=== PATIENT | female | born 1980 | race Caucasian/White ===

== ENCOUNTER 2024-09-28 09:53 | Emergency (ER) | payer BC, SELFPAY ==
[2024-09-28 10:05] VITALS: BP 119/76
[2024-09-28 10:37] LABS: % Basophils 0.4 % (0-2); % Eosinophils 1.2 % (0-6); % Immature Granulocytes 0.5 % (0-0.5); % Lymphocytes 17.4 % (20.5-51.1); % Monocytes 7.4 % (1.7-9.3); % Neutrophils 73.1 % (42.2-75.2); Absolute Basophils 0.1 10^3/uL (0-0.2); Absolute Eosinophils 0.2 10^3/uL (0-0.7); Absolute Immature Granulocytes 0.1 10^3/uL (0-0.05); Absolute Lymphocytes 2.1 10^3/uL (1.2-3.4); Absolute Monocytes 0.9 10^3/uL (0.1-0.6); Absolute Neutrophils 8.8 10^3/uL (1.4-6.5); Hematocrit 36.5 % (37.0-47.0); Hemoglobin 12.4 g/dL (12.0-16.0); Mean Corpuscular Hgb 30.2 pg (27.0-31.0); Nucleated Red Blood Cells % 0 %; Platelet Count 264 10^3/uL (130-400); Red Cell Dist. Width 12.4 % (11.5-14.5)
[2024-09-28 10:54] LABS: ALT (SGPT) 21 U/L (0-35); AST (SGOT) 23 U/L (14-36); Albumin 4.5 g/dl (3.5-5.0); Alkaline Phosphatase 80 U/L (38-126); Blood Urea Nitrogen 5 mg/dl (7-17); Calcium 9.4 mg/dl (8.4-10.2); Carbon Dioxide 29 mmol/L (22-30); Chloride 98 mmol/L (98-107); Glucose 101 mg/dl (70-99); Potassium 3.3 mmol/L (3.5-5.1); Sodium 138 mmol/L (135-145); Total Bilirubin 0.6 mg/dl (0.2-1.3); Total Protein 6.9 g/dl (6.3-8.2); eGFR > 60.00
[2024-09-28 10:55] LABS: COVID-19 Antigen Negative (Negative)
[2024-09-28] MEDS: DUONEB 3 ML INH (12:11)
[2024-09-28 12:21] LABS: Monotest Negative (Negative)
--- NOTE | 2024-09-28 12:25 | ED.GENMED ---
History of Present Illness
General
Chief Complaint: Cold/Flu/URI Symptoms
Source: patient and spouse ( at bedside)
Exam Limitations: none
Time Seen by Provider: 09/28/24 11:44
Nursing documentation reviewed up to this point in time: agreed with
History of Present Illness
History of Present Illness:
Patient is a 43-year-old female with history asthma presenting to the emergency department with 8 days of upper respiratory symptoms. Patient reports ongoing cough, nasal congestion, left-sided facial pressure. Symptoms initially started 8 days
ago with fever, chills, body aches, congestion. Cough has came on gradually and has persisted. Patient was seen in urgent care 5 days ago and prescribed 4 days of steroids which she has completed. Patient states cough is worse at night and is
causing her significant sleeping difficulty. She also notices thick, yellow mucus from nose. She is concerned that she has a sinus infection.
Patient using albuterol inhaler and nebulizer at home with mild improvement in symptoms.
Patient states sore throat and fevers have largely improved.
Patient's and son were sick with similar symptoms. Patient did not receive the flu vaccine this year.
Review of Systems
Review of Systems
Allergies reviewed?: Yes
All Other Systems: ROS reviewed and negative except as documented in HPI and ROS
Phy Exam
Physical Exam
Physical Exam:
Vitals: Patient's vital signs are stable. Afebrile
General: Patient is well appearing, no acute distress. Nontoxic appearing
Skin: Warm and dry, no rashes or lesions
Head: Normocephalic, atraumatic. Mild tenderness over left maxillary sinus.
Eyes: Sclera nonicteric. EOMs intact. No nystagmus.
Throat: Mild pharyngeal erythema. No tonsillar edema or exudates. Uvula midline. Protecting airway
Neck: Normal ROM, no cervical spine tenderness, no meningismus
Cardiac: Regular rate and rhythm, no murmurs.
Pulm: Normal respiratory effort, no wheezes, rales, rhonchi heard on exam. Frequent cough.
Abdomen: Abdomen soft. No abdominal tenderness.
Extremities: No evidence of cyanosis or edema
Neuro: AAOx3. Grossly intact
Psychiatric: Normal affect.
Course
Orders/Labs/Results
Orders:
Orders
09/28/24 10:17
CBC/With Diff [Complete Blood Count/With Diff] Urgent
COVID-19 Antigen Urgent
Source: Nasal Swab
Comprehensive Metabolic Panel Urgent
Monotest Urgent
Comment: ADD ON
Influenza A+B Rapid Molecular Urgent
NIMO Source: Nasal Swab
Specimen Description:
09/28/24 12:02
Add On- LAB Urgent
Tests Added?: monospot
Ipratropium/Albuterol Sulfate [Duoneb] 3 ml INH R NOW STA
CR Chest - 2 Views Urgent
Comment:
Reason For Exam: cough, URI symptoms x 8 days
09/28/24 13:34
Doxycycline [Vibramycin] 100 mg PO NOW STA
Abnormal Lab Results
09/28/24
10:17
WBC 12.0 H 10^3/uL
(4.8-10.8)
RBC 4.10 L 10^6/uL
(4.20-5.40)
Hct 36.5 L %
(37.0-47.0)
Abs Immat Gran (auto) 0.1 H 10^3/uL
(0-0.05)
Absolute Neuts (auto) 8.8 H 10^3/uL
(1.4-6.5)
Absolute Monos (auto) 0.9 H 10^3/uL
(0.1-0.6)
Lymphocytes % 17.4 L %
(20.5-51.1)
Potassium 3.3 L mmol/L
(3.5-5.1)
BUN 5 L mg/dl
(7-17)
Creatinine 0.5 L mg/dL
(0.6-1.0)
Glucose 101 H mg/dl
(70-99)
09/28/24 10:17
09/28/24 10:17
Vital Signs
Initial and Last Documented VS:
Initial Vital Signs
Temp Pulse Resp BP Pulse Ox
98.2 F 82 16 119/76 99
09/28/24 10:05 09/28/24 10:05 09/28/24 10:05 09/28/24 10:05 09/28/24 10:05
Last Documented Vital Signs
Temp Pulse Resp BP Pulse Ox
98.2 F 85 16 121/78 98
09/28/24 10:05 09/28/24 13:43 09/28/24 13:43 09/28/24 13:43 09/28/24 13:43
MDM/Problems Addressed
Differential Diagnosis Includes:
Not limited to: Viral illness, viral bronchitis, pneumonia, sinusitis, pharyngitis, asthma exacerbation, etc.
MDM/Problems Addressed:
43 year old female with 8 days of upper respiratory symptoms, now with left sided facial pressure. No fevers, chest pain, or shortness of breath. Patient arrives afebrile with stable vital signs. Physical exam as above. Labs and viral testing
initiated in triage. Mild leukocytosis of 12.2 noted. Otherwise no clinically significant abnormalities. Viral swabs negative. Overall impression is likely viral bronchitis with developing sinusitis. Suspect mild leukocytosis secondary to recent
corticosteroid use. Will give duoneb and check xray to rule out pneumonia.
Update: Patient with some improvement after duoneb. Xray shows no evidence of pneumonia. Suspect viral in nature. Given duration of symptoms and new facial pain - will cover with abx for possible developing bacterial sinusitis. Patient has inhalers/
nebulizer solution at home. Will send cough syrup. Close return precautions discussed. Patient will f/u with primary care. Stable for discharge.
Chronic conditions affecting care:
N/A
Acute Exacerbation and/or Progression of Chronic Illness:
N/A
*Radiology
Radiology exam reviewed: preliminary read by ED provider (Chest x-ray reviewed by me-no pneumonia or other acute abnormality) and radiology read reviewed
*Pulse Oximetry
Patient hypoxic: no
*EKG
Interpreted by ED Provider?: NA
*Wildland Fire Fighter Specialist Interpretation
Rate: Wildland [employer] Fighter Specialist- N/A
*Critical Care Note
Total Time (30-74mins, 75-104mins- exclusive of procedures): Not Applicable
ED Attending Note
-
Portions of this chart may have been created with voice recognition software.� Occasional wrong word or��sound alike� substitutions may have occurred due to the inherent limitations of voice recognition software.
Discharge Plan
Departure
Patient Disposition: Home (Routine Discharge)
Date of Disposition: 09/28/24
Time of Disposition: 13:35
Patient with high blood pressure during this ER visit?: No
Condition: Good
Covid-19: Negative COVID-19
Discharge Problem:
Acute bronchitis, Sinusitis, acute
Instructions: Acute Bronchitis, Adult (DC), Sinusitis in adults - ED discharge instructions
Prescriptions:
New
doxycycline hyclate 100 mg capsule
100 mg PO BID Qty: 14 0RF
codeine-guaifenesin 7.5-225 mg/5 mL liquid
7.5 ml PO Q6H PRN (Reason: Cough) Qty: 473 0RF
Referrals:
UNKNOWN - PT DOES,NOT KNOW [Family Provider] -
Activity Restrictions/Additional Instructions:
Return to the emergency department with any high fevers, chest pain, shortness of breath/difficulties breathing, coughing up blood, worsening current symptoms, or any other concerns
-As discussed that your chest x-ray showed no evidence of pneumonia today. It is likely that you have bronchitis and a sinus infection
-A prescription for an antibiotic has been sent to your pharmacy that you can take twice a day for the next week. It is important you complete this antibiotic course. Be diligent with sun protection while you are on this medication.
-As discussed�you should continue to use your albuterol inhaler and nebulizer as needed for cough. You can use cough syrup as needed for persistent cough.
-It is important to stay well-hydrated. Take Tylenol/Motrin as needed for aches/fever.
-Follow-up with your primary care provider for further evaluation/management to ensure that symptoms are improving
Monitor your symptoms closely return to the emergency department any acute worsening/new symptoms or any other concerns
Interventions
Interventions:
*Risk Screen - Suicide Last Done: 09/28/24 10:05
*General Assessment Last Done: 09/28/24 13:14
*Neglect/Abuse Screening Last Done: 09/28/24 10:05
ED- Fall Risk Assessment Last Done: 09/28/24 13:46
*ED COVID-19 Vaccine History Last Done: 09/28/24 13:14
*Nursing Disposition Last Done: 09/28/24 13:46
ED- Pulmonary Assessment Last Done: 09/28/24 13:14
Discharge Date and Time
Discharge Date/Time: 09/28/24 13:47
Print Language: MICRONESIAN
[2024-09-28] MEDS: VIBRAMYCIN 100 MG PO (13:39)
[2024-09-28 13:43] VITALS: BP 121/78
== END 2024-09-28 13:47 | disposition home or self-care (01) ==
LOC: EMR 09:53
PROVIDERS: Emergency Medicine; EMERGENCY PHYSICIAN Emergency Medicine
DX: J20.9 Acute bronchitis, unspecified (principal); J01.90 Acute sinusitis, unspecified; J45.909 Unspecified asthma, uncomplicated
CPT/HCPCS: 94640; 99284; 71046; 80053; 85025; 86308; 87502; 87811